=== PATIENT | male | born 1955 | race Caucasian/White ===

== ENCOUNTER 2018-04-04 17:36 | Emergency (ER) | payer MEDICARE, OTHER ==
--- NOTE | 2018-04-04 18:07 | EDM.PDOC ---
ED HPI GENERAL MEDICAL PROBLEM - General Chief Complaint: General Stated Complaint: SWEATING/WOOZY Time Seen by Provider: 04/04/18 18:06 Source of Information: Reports: Patient, RN Notes Reviewed History Limitations: Reports: No Limitations - History of Present Illness INITIAL COMMENTS - FREE TEXT/NARRATIVE: 62-year-old gentleman presents to the emergency department today following a syncopal event at home, this is a new event for him he's visiting to the area was with family working on a project suddenly very diaphoretic dizzy with near syncopal event he did not hit his head was able to get to a chair and rest at this time the dizziness has resolved no diaphoresis has resolved he is feeling better - Related Data Home Meds: Home Meds Atenolol 100 mg PO DAILY 04/04/18 [History] Gabapentin [Neurontin] 900 mg PO TID 04/04/18 [History] Oxybutynin [Oxybutynin ER] 5 mg PO DAILY 04/04/18 [History] atorvaSTATin [Lipitor] 20 mg PO DAILY 04/04/18 [History] hydroCHLOROthiazide [Hydrochlorothiazide] 25 mg PO DAILY 04/04/18 [History] oxyCODONE HCl [Roxicodone] 5 mg PO ASDIRECTED PRN 04/04/18 [History] Past Medical History Cardiovascular History: Reports: High Cholesterol, Hypertension Other Endocrine/Metabolic History: pre diabetic - Past Surgical History GI Surgical History: Reports: Appendectomy, Cholecystectomy, Colon Musculoskeletal Surgical History: Reports: Knee Replacement Other Musculoskeletal Surgeries/Procedures:: shoulder surgery Social & Family History - Tobacco Use Smoking Status *Q: Never Smoker - Caffeine Use Caffeine Use: Reports: Coffee, Soda - Recreational Drug Use Recreational Drug Use: No ED ROS GENERAL - Review of Systems Review Of Systems: See Below Constitutional: Reports: Diaphoresis HEENT: Reports: No Symptoms Respiratory: Reports: No Symptoms Cardiovascular: Reports: Syncope GI/Abdominal: Reports: No Symptoms : Reports: No Symptoms ED EXAM, GENERAL - Physical Exam Exam: See Below Free Text/Narrative:: General: Male, not in any distress, alert and oriented x3 HEENT: head is atraumatic normocephalic, eyes pupils equal round reactive to light, sclera clear no conjunctivitis appreciated. Ears tympanic membranes clear and castillo landmarks and light reflex are present bilaterally canals are clear. Nose no septal deviation, nares are clear, no blood present. Mouth mucosa is moist and pink no erythema or exudate noted in soft palate, tongue is midline uvula is midline, dentition is intact. Neck: Supple no thyromegaly no tracheal deviation. Nodes: Cervical nodes subclavicular nodes nontender no palpable lymphadenopathy noted. Lungs: clear to auscultation bilaterally with symmetrical respirations, no adventitious noise appreciated. CV: Regular rate and rhythm S1 and S2 appreciated no murmurs rubs or gallops noted. Abdomen: Soft, nontender, no palpable masses or organomegaly appreciated, no distention no guarding bowel sounds are present, . Neuro: Cranial nerves II through XII grossly intact Skin: Warm and dry, intact Extremities: No lower extremity edema appreciated, Course - Vital Signs Last Recorded V/S: Last Vital Signs Temp 94.6 F L 04/04/18 17:51 Pulse 62 04/04/18 17:51 Resp 18 04/04/18 17:51 BP 149/73 H 04/04/18 17:51 Pulse Ox 96 04/04/18 17:51 - Orders/Labs/Meds Orders: Active Orders 24 hr Category Date Time Status Cardiac Monitoring [RC] .As Directed Care 04/04/18 18:04 Active EKG Documentation Completion [RC] ASDIRECTED Care 04/04/18 18:05 Active EKG 12 Lead [EK] Stat Ther 04/04/18 18:05 Ordered Labs: Laboratory Tests 04/04/18 04/04/18 Range/Units 18:04 18:04 WBC 8.0 (4.5-11.0) K/uL RBC 5.82 (4.30-5.90) M/uL Hgb 13.6 (12.0-15.0) g/dL Hct 43.8 (40.0-54.0) % MCV 75 L (80-98) fL MCH 23 L (27-31) pg MCHC 31 L (32-36) % Plt Count 248 (150-400) K/uL Neut % (Auto) 58 (36-66) % Lymph % (Auto) 27 (24-44) % Upson % (Auto) 10 H (2-6) % Eos % (Auto) 4 (2-4) % Baso % (Auto) 1 (0-1) % Sodium 139 L (140-148) mmol/L Potassium 3.8 (3.6-5.2) mmol/L Chloride 100 (100-108) mmol/L Carbon Dioxide 26 (21-32) mmol/L Anion Gap 16.8 H (5.0-14.0) mmol/L BUN 24 H (7-18) mg/dL Creatinine 1.2 (0.8-1.3) mg/dL Est Cr Clr Drug Dosing 56.12 mL/min Estimated GFR (MDRD) > 60 (>60) Glucose 74 (74-106) mg/dL Calcium 8.1 L (8.5-10.1) mg/dL CK-MB (CK-2) 1.4 (0-3.6) mg/mL Troponin I < 0.017 (0.000-0.056) ng/mL Departure - Departure Time of Disposition: 19:05 Disposition: Home, Self-Care 01 Condition: Good Clinical Impression: Syncope Qualifiers: Syncope type: vasovagal syncope Qualified Code(s): R55 - Syncope and collapse - Discharge Information Referrals: PCP,None [Primary Care Provider] - Forms: ED Department Discharge Additional Instructions: Please followup with your primary care provider in 3-5 days if not better, please call return to the emergency department with worsening of symptoms. - My Orders Last 24 Hours: My Active Orders 04/04/18 18:04 Cardiac Monitoring [RC] .As Directed 04/04/18 18:05 EKG Documentation Completion [RC] ASDIRECTED EKG 12 Lead [EK] Stat - Assessment/Plan Last 24 Hours: My Active Orders 04/04/18 18:04 Cardiac Monitoring [RC] .As Directed 04/04/18 18:05 EKG Documentation Completion [RC] ASDIRECTED EKG 12 Lead [EK] Stat Plan: Assessment Acuity = acute Site and laterality = vasovagal Etiology = probably related to poor fluid intake Manifestations = none Location of injury = Home Lab values = CBC, CMP, CK-MB, troponin, EKG all unremarkable Plan He remained asymptomatic while in the emergency department was able to ambulate without difficulty plan is discharge home follow-up primary care upon return home if no improvement This note was dictated using [employer] voice recognition software please call with any questions on syntax or grammar.
== END 2018-04-04 19:18 | disposition home or self-care (01) ==
LOC: JP.ED 17:36
DX: R55 Syncope and collapse (principal); E78.00 Pure hypercholesterolemia, unspecified; I10 Essential (primary) hypertension; R73.03 Prediabetes; Z79.899 Other long term (current) drug therapy
CPT/HCPCS: 36415; 80048; 82553; 84484; 85025; 93005; 99284-25

== ENCOUNTER 2019-11-26 17:08 | Emergency (ER) | payer MEDICARE, OTHER ==
--- NOTE | 2019-11-26 18:17 | EDM.PDOC ---
ED HPI GENERAL MEDICAL PROBLEM - General Chief Complaint: Wound Recheck Stated Complaint: RT LEG WOUND Time Seen by Provider: 11/26/19 18:07 Source of Information: Reports: Patient, RN Notes Reviewed History Limitations: Reports: No Limitations - History of Present Illness INITIAL COMMENTS - FREE TEXT/NARRATIVE: 63-year-old gentleman presents emergency department today concerned about right lower extremity wound infection he does have a known history of chronic stasis venous dermatitis he injured his leg about a week ago he is now noticed some redness little bit of warmth around the wounds, he is in the area visiting denies Pain Score (Numeric/FACES): 0 - Related Data Allergies Allergy/AdvReac Type Severity Reaction Status Date / Time No Known Allergies Allergy Verified 11/26/19 17:30 Home Meds: Home Meds Oxybutynin [Oxybutynin ER] 5 mg PO DAILY 04/04/18 [History] atenoloL [Atenolol] 100 mg PO DAILY 04/04/18 [History] atorvaSTATin [Lipitor] 20 mg PO DAILY 04/04/18 [History] hydroCHLOROthiazide [Hydrochlorothiazide] 25 mg PO DAILY 04/04/18 [History] oxyCODONE HCl [Roxicodone] 5 mg PO ASDIRECTED PRN 04/04/18 [History] Warfarin [Coumadin] 5 mg PO DAILY 11/26/19 [History] cephALEXin [Keflex] 500 mg PO TID #21 capsule 11/26/19 [Rx] Past Medical History HEENT History: Reports: Impaired Vision Cardiovascular History: Reports: High Cholesterol, Hypertension Genitourinary History: Reports: Prostate Disorder Neurological History: Reports: Neuropathy, Peripheral Other Endocrine/Metabolic History: pre diabetic - Infectious Disease History Infectious Disease History: Reports: Chicken Pox, Measles, Mumps - Past Surgical History GI Surgical History: Reports: Appendectomy, Cholecystectomy, Colon Male Surgical History: Reports: TURP-Transurethral Resection of Prostate Musculoskeletal Surgical History: Reports: Knee Replacement Other Musculoskeletal Surgeries/Procedures:: shoulder surgery Social & Family History - Tobacco Use Smoking Status *Q: Never Smoker Second Hand Smoke Exposure: No - Caffeine Use Caffeine Use: Reports: Coffee, Soda - Alcohol Use Days Per Week of Alcohol Use: 0 - Recreational Drug Use Recreational Drug Use: No ED ROS GENERAL - Review of Systems Review Of Systems: See Below Constitutional: Denies: Fever, Chills Respiratory: Reports: No Symptoms Cardiovascular: Reports: No Symptoms GI/Abdominal: Reports: No Symptoms Skin: Reports: Pallor, Rash, Erythema ED EXAM, SKIN/RASH Exam: See Below Text/Narrative:: Examination of the lower extremities he does have coloration of the skin consistent with chronic venous stasis dermatitis bilaterally however on the right lower extremity there are some wounds that does have some excoriation mild amount erythema around the wounds this is from the injury he described about a week ago +2 pitting edema bilaterally Exam Limited By: No Limitations General Appearance: Alert, WD/WN, No Apparent Distress Respiratory/Chest: No Respiratory Distress Course - Vital Signs Last Recorded V/S: Last Vital Signs Temp 97.3 F 11/26/19 17:40 Pulse 66 11/26/19 17:40 Resp 16 11/26/19 17:40 BP 153/80 H 11/26/19 17:40 Pulse Ox 92 L 11/26/19 17:40 Departure - Departure Time of Disposition: 18:16 Disposition: Home, Self-Care 01 Condition: Fair Clinical Impression: Cellulitis Qualifiers: Site of cellulitis: extremity Site of cellulitis of extremity: lower extremity Laterality: right Qualified Code(s): L03.115 - Cellulitis of right lower limb - Discharge Information Prescriptions: cephALEXin [Keflex] 500 mg PO TID #21 capsule Referrals: PCP,None [Primary Care Provider] - Additional Instructions: Your medications have been faxed to [facility], take full course of antibiotics, follow-up with your primary care upon return home if not better call return to the emergency department worsening of symptoms. Sepsis Event Note - Evaluation Sepsis Screening Result: No Definite Risk - Focused Exam Vital Signs: Vital Signs Temp Pulse Resp BP Pulse Ox 11/26/19 17:40 97.3 F 66 16 153/80 H 92 L 11/26/19 17:26 97.3 F 66 16 153/80 H 92 L Date Exam was Performed: 11/26/19 Time Exam was Performed: 18:14 - Assessment/Plan Plan: Assessment Acuity = acute Site and laterality = local wound cellulitis Etiology = skin insult Manifestations = none Location of injury = Home Lab values = none Plan Elected to treat empirically Keflex 500 mg p.o. 3 times daily x7 days follow-up primary care upon return home medications faxed to [facility] This note was dictated using [employer] voice recognition software please call with any questions on syntax or grammar.
== END 2019-11-26 18:35 | disposition home or self-care (01) ==
LOC: JP.ED 17:08
DX: L03.115 Cellulitis of right lower limb (principal); I10 Essential (primary) hypertension; E78.00 Pure hypercholesterolemia, unspecified; Z79.01 Long term (current) use of anticoagulants; Z79.899 Other long term (current) drug therapy
CPT/HCPCS: 99283